=== PATIENT | female | born 1995 | race Hispanic/Latino ===

== ENCOUNTER 2017-02-14 22:19 | Emergency (ER) | payer SELFPAY ==
[2017-02-14] MEDS ORDERED: Ibuprofen 600 MG TAB ONE (22:52)
[2017-02-14] MEDS ORDERED: Ondansetron ODT 4 MG TAB ONE (22:52)
== END 2017-02-14 22:58 | disposition home or self-care (01) ==
LOC: MADERS 22:19
DX: J02.9 Acute pharyngitis, unspecified (principal)
CPT/HCPCS: 87081; 87430; 99283; Q0162